=== PATIENT | female | born 1985 | race Caucasian/White ===

== ENCOUNTER 2017-06-15 09:21 | Observation (INO) | payer BC, MEDICAID ==
[~2017-06-15] VITALS: Ht 172.7 cm; Wt 132.9 kg
[~2017-06-15 09:21] MED LIST: OXYCODONE; ZANTAC
[2017-06-15] MEDS ORDERED: PNV1TABL76 PO (09:57)
== END 2017-06-15 10:30 | disposition home or self-care (01) ==
LOC: L&D 09:21
PROVIDERS: ADMIT Specialist; ATTEND Specialist
DX: O26.892 Other specified pregnancy related conditions, second trimester (principal); R10.9 Unspecified abdominal pain; Z3A.00 Weeks of gestation of pregnancy not specified
CPT/HCPCS: 99281; G0378

== ENCOUNTER 2018-12-27 18:59 | Emergency (ER) | payer BC, MEDICAID ==
[~2018-12-27] VITALS: Ht 172.7 cm; Wt 120.0 kg
[~2018-12-27 18:59] MED LIST changes: -OXYCODONE; +PNV1TABL76 PO; -ZANTAC
[2018-12-27] MEDS: ALPRAZOLAM 0.25 MG TABLET PO ONE (20:27)
[2018-12-27 20:38] LABS: EOSINOPHILS % 1.2 % (0.0-5.0); HEMATOCRIT. 35.8 % (36.0-48.0); HEMOGLOBIN. 11.1 g/dL (12.0-16.0); LYMPHOCYTES % 20.7 % (20.0-50.0); MEAN CORPUSCULAR HEMOGLOBIN 20.8 pg (28.0-32.0); MEAN PLATELET VOLUME 7.6 fl (7.4-10.4); NEUTROPHILS % 71.1 % (40.0-76.0); PLATELET 304 x1000/uL (130-400); RED BLOOD CELL COUNT 5.34 mill/uL (4.2-5.4); RED CELL DISTRIBUTION WIDTH 18.5 % (11.6-14.6)
[2018-12-27 20:42] LABS: CHLORIDE 107 mEq/L (98-107)
[2018-12-27 21:12] LABS: PLATELET ESTIMATE NORMAL
[2018-12-27 23:24] VITALS: BP 124/72
== END 2018-12-27 23:24 | disposition home or self-care (01) ==
LOC: ER 18:59
DX: R07.89 Other chest pain (principal); F41.9 Anxiety disorder, unspecified; J45.909 Unspecified asthma, uncomplicated; E66.01 Morbid (severe) obesity due to excess calories; Z68.41 Body mass index [BMI] 40.0-44.9, adult; Z91.013 Allergy to seafood; Z88.5 Allergy status to narcotic agent
CPT/HCPCS: 36415; 71045; 83880; 84484; 93005; 99284

== ENCOUNTER 2021-05-28 16:29 | Emergency (ER) | payer MEDICAID, OTHER ==
[~2021-05-28] VITALS: Ht 172.7 cm; Wt 56.0 kg
[2021-05-28] MEDS ORDERED: ONDANSETRON 4MG ODT PO ONE (16:45)
[2021-05-28 17:06] LABS: BASOPHILS % 0.4 % (0.0-2.0); EOSINOPHILS % 1.1 % (0.0-5.0); HEMATOCRIT. 39.1 % (36.0-48.0); HEMOGLOBIN. 12.3 g/dL (12.0-16.0); LYMPHOCYTES % 13.8 % (20.0-50.0); MEAN CORPUSCULAR HEMOGLOBIN 22.6 pg (28.0-32.0); MEAN PLATELET VOLUME 7.9 fl (7.4-10.4); MONOCYTES % 4.8 % (2.0-8.0); NEUTROPHILS % 79.9 % (40.0-76.0); PLATELET 292 x1000/uL (130-400); RED BLOOD CELL COUNT 5.44 mill/uL (4.2-5.4); RED CELL DISTRIBUTION WIDTH 16.7 % (11.6-14.6)
[2021-05-28 17:10] LABS: CHLORIDE 106 mEq/L (98-107)
[2021-05-28 17:19] LABS: HCG SCREEN NEGATIVE
[2021-05-28] MEDS ORDERED: ONDANSETRON 4MG ODT PO NR (18:15)
[2021-05-28] MEDS ORDERED: SODIUM CHLORIDE 0.9% 1,000 ML IV ONE (18:30)
[2021-05-28] MEDS ORDERED: MECLIZINE 25MG TABLET PO ONE (18:30)
[2021-05-28] MEDS ORDERED: POTASSIUM CHLORIDE 20MEQ TABLET SR PO ONE (20:30)
[2021-05-28] MEDS ORDERED: MECL-159 MT (20:31)
[2021-05-28] MEDS ORDERED: ONDA4TAB11 PO (20:31)
[2021-05-28 22:16] VITALS: BP 130/83
== END 2021-05-28 22:32 | disposition home or self-care (01) ==
LOC: ER 16:29
DX: R11.0 Nausea (principal); E87.8 Other disorders of electrolyte and fluid balance, not elsewhere classified; E11.9 Type 2 diabetes mellitus without complications; F41.9 Anxiety disorder, unspecified; J45.909 Unspecified asthma, uncomplicated; Z88.6 Allergy status to analgesic agent; Z98.51 Tubal ligation status; Z91.013 Allergy to seafood; Z98.890 Other specified postprocedural states
CPT/HCPCS: 36415; 70450; 71045; 80053; 84703; 85025; 93005; 99285; J7030; J8597; Q0162